=== PATIENT | female | born 1940 | race Caucasian/White ===

== ENCOUNTER 2020-06-03 05:52 | Day surgery (SDC) | payer MEDICARE, BC ==
[2020-06-03] VITALS (8 sets, daily range): BP systolic 116–153; BP diastolic 45–62
[~2020-06-03] VITALS: Ht 154.9 cm; Wt 67.6 kg
[2020-06-03] MEDS ORDERED: vancomycin/NS 1 GM ADD-VANTAGE 250 ML X 1 DOSE IV ONE (06:15)
[2020-06-03] MEDS ORDERED: ceFAZolin 2gm in dextrose, iso 50 ML IV ONE (06:15)
[2020-06-03] MEDS ORDERED: PANT40TA54 PO (06:32)
[2020-06-03] MEDS ORDERED: FURO20TA4 PO (06:32)
[2020-06-03] MEDS ORDERED: FLUO40CA PO (06:32)
[2020-06-03] MEDS ORDERED: AMIT25TA9 PO (06:32)
[2020-06-03] MEDS ORDERED: ATOR-2 PO (06:32)
[2020-06-03] MEDS ORDERED: LEVO150T8 PO (06:32)
[2020-06-03] MEDS ORDERED: CYCL-1 PO (06:32)
[2020-06-03] MEDS ORDERED: METO50TA7 PO (06:53)
[2020-06-03] MEDS ORDERED: MULT-1085 PO (06:53)
[2020-06-03] MEDS ORDERED: NITR0.4T48 SL (06:53)
[2020-06-03] MEDS ORDERED: MAGNESIUM PO (06:53)
[2020-06-03] MEDS ORDERED: ASCO500C17 PO (06:53)
[2020-06-03] MEDS ORDERED: DOCU-148 PO (06:53)
[2020-06-03] MEDS ORDERED: CHOL20004 PO (06:53)
[2020-06-03] MEDS ORDERED: tums (06:53)
[2020-06-03] MEDS ORDERED: MELA5TAB12 PO (06:53)
[2020-06-03] MEDS ORDERED: METO-395 PO (06:53)
[2020-06-03 07:15] LABS: BASOPHILS # (AUTO) 0.1 X10'3 (0-0.2); BASOPHILS % (AUTO) 0.9 % (0-1); EOSINOPHILS # (AUTO) 0.3 X10'3 (0-0.9); EOSINOPHILS % (AUTO) 5.2 % (0-6); HEMATOCRIT 37.6 % (35.0-45.0); HEMOGLOBIN 12.7 g/dl (12.0-16.0); LYMPHOCYTES # (AUTO) 0.7 X10'3 (1.1-4.8); LYMPHOCYTES % (AUTO) 11.5 % (21-51); MEAN CORPUSCULAR HGB CONC 33.8 g/dL (33.0-36.5); MEAN CORPUSCULAR VOLUME 97.6 FL (78-98); MONOCYTES # (AUTO) 0.4 X10'3 (0-0.9); MONOCYTES % (AUTO) 7.1 % (2-12); NEUTROPHILS # (AUTO) 4.6 X10'3 (1.8-7.7); NEUTROPHILS % (AUTO) 75.3 % (42-75); PLATELET COUNT 213 X10'3 (140-440); RED BLOOD COUNT 3.85 X10'6 (4.20-5.60); RED CELL DISTRIBUTION WIDTH 15.2 % (11.5-14.5); WHITE BLOOD COUNT 6.1 X10'3 (4.5-11.0)
[2020-06-03 07:24] LABS: ALBUMIN 4.1 G/DL (3.4-5.0); ANION GAP 11 (8-16); BLOOD UREA NITROGEN 28 MG/DL (7-18); BUN/CREATININE RATIO 15.6 (6.6-38.0); CALCIUM 9.2 MG/DL (8.5-10.1); CHLORIDE 105 MMOL/L (99-107); GLUCOSE 94 MG/DL (70-104); MAGNESIUM 1.9 MG/DL (1.5-2.4); POTASSIUM 4.2 MMOL/L (3.5-5.1); SODIUM 140 MMOL/L (135-145); TOTAL CARBON DIOXIDE 24.1 MMOL/L (24-32); eGFR 27 ML/MIN
[2020-06-03] MEDS ORDERED: pneumococcal 23-VAL P-sac vacc 25 mcg/0.5ml vial IMVAC ONE (07:30)
[2020-06-03] MEDS ORDERED: FLU VACC QS2020-21(6MOS UP)/PF 60 MCG/0.5 ML SYRINGE IMVAC ONE (07:30)
[2020-06-03] MEDS ORDERED: proCHLORperazine 10 MG/2 ml inj ONE (07:33)
[2020-06-03] MEDS ORDERED: fentaNYL/PF 50MCG/1 ML 2ML syringe ONE (07:34)
[2020-06-03] MEDS ORDERED: midazolam 2 mg/2 ml injection ONE ×2 (07:34→09:14)
[2020-06-03] MEDS ORDERED: LIDOcaine 1% W/epiNEPHrine 1:100,000 20ml vial ONE (07:34)
[2020-06-03] MEDS ORDERED: vancomycin 1,000mg inj ONE (07:35)
--- NOTE | 2020-06-03 12:54 | NUR ---
Pt ate 100% of breakfast tray.
== END 2020-06-03 12:55 | disposition home or self-care (01) ==
LOC: SSTAY O 05:52
PROVIDERS: ATTEND Internal Medicine Cardiovascular Disease
DX: Z45.010 Encounter for checking and testing of cardiac pacemaker pulse generator [battery] (principal); J44.9 Chronic obstructive pulmonary disease, unspecified; N18.9 Chronic kidney disease, unspecified; Z85.3 Personal history of malignant neoplasm of breast; Z85.118 Personal history of other malignant neoplasm of bronchus and lung; Z87.891 Personal history of nicotine dependence; Z79.899 Other long term (current) drug therapy
CPT/HCPCS: 33228; 36415; 80048; 83735; 85025; 85610; 93005; 99152; 99153; C1785; J0780; J2250; J3010; J3370; A4620

== ENCOUNTER 2020-12-09 07:54 | Day surgery (SDC) | payer MEDICARE, BC ==
[~2020-12-09] VITALS: Ht 154.9 cm; Wt 62.4 kg
[2020-12-09] VITALS (7 sets, daily range): BP systolic 95–135; BP diastolic 38–66
[~2020-12-09 07:54] MED LIST: AMIT25TA9 PO; ASCO500C17 PO; ATOR-2 PO; CHOL20004 PO; CYCL-1 PO; DOCU-148 PO; FLUO40CA PO; FURO20TA4 PO; LEVO150T8 PO; MAGNESIUM PO; MELA5TAB12 PO; METO-395 PO; METO50TA7 PO; MULT-1085 PO; NITR0.4T48 SL; PANT40TA54 PO; tums
[2020-12-09] MEDS ORDERED: albumin 25% 100mL bottle x 1 IV PRN (08:25)
[2020-12-09] MEDS ORDERED: SENN-29 PO (08:57)
[2020-12-09] MEDS ORDERED: ASPI-1265 PO (08:57)
[2020-12-09] MEDS ORDERED: PRED20TA PO (08:57)
== END 2020-12-09 10:40 | disposition home or self-care (01) ==
LOC: SSTAY O 07:54
PROVIDERS: ATTEND Radiology Vascular & Interventional Radiology
DX: J90 Pleural effusion, not elsewhere classified (principal); I11.0 Hypertensive heart disease with heart failure; I50.9 Heart failure, unspecified; E03.9 Hypothyroidism, unspecified; F32.9 Major depressive disorder, single episode, unspecified; F41.9 Anxiety disorder, unspecified; Z85.3 Personal history of malignant neoplasm of breast; Z85.118 Personal history of other malignant neoplasm of bronchus and lung; Z90.49 Acquired absence of other specified parts of digestive tract; Z90.721 Acquired absence of ovaries, unilateral; Z90.12 Acquired absence of left breast and nipple; Z79.899 Other long term (current) drug therapy; Z79.82 Long term (current) use of aspirin
CPT/HCPCS: 32555

== ENCOUNTER 2020-12-23 08:08 | Day surgery (SDC) | payer MEDICARE, BC ==
[~2020-12-23] VITALS: Ht 154.9 cm; Wt 61.8 kg
[~2020-12-23 08:08] MED LIST changes: +ASPI-1265 PO; -METO-395 PO; +PRED20TA PO; +SENN-29 PO
[2020-12-23] MEDS ORDERED: normal saline 1000ml 1,000 ML IV PRN (08:40)
[2020-12-23] MEDS ORDERED: albumin 25% 100mL bottle x 1 IV PRN (08:40)
[2020-12-23 09:09] VITALS: BP 104/53
[2020-12-23 09:11] VITALS: BP 104/49
[2020-12-23 09:15] VITALS: BP 98/68
[2020-12-23 09:18] VITALS: BP 95/46
[2020-12-23 09:30] VITALS: BP 90/42
[2020-12-23 09:45] VITALS: BP 95/51
== END 2020-12-23 10:10 | disposition home or self-care (01) ==
LOC: SSTAY O 08:08
PROVIDERS: ATTEND Radiology Diagnostic Radiology
DX: J90 Pleural effusion, not elsewhere classified (principal); E78.5 Hyperlipidemia, unspecified; E03.9 Hypothyroidism, unspecified; F32.9 Major depressive disorder, single episode, unspecified; F41.9 Anxiety disorder, unspecified; M19.90 Unspecified osteoarthritis, unspecified site; I11.0 Hypertensive heart disease with heart failure; I50.9 Heart failure, unspecified; Z85.3 Personal history of malignant neoplasm of breast; Z85.118 Personal history of other malignant neoplasm of bronchus and lung; Z90.49 Acquired absence of other specified parts of digestive tract; Z90.721 Acquired absence of ovaries, unilateral; Z90.12 Acquired absence of left breast and nipple
CPT/HCPCS: 32555

== ENCOUNTER 2021-01-06 07:53 | Day surgery (SDC) | payer MEDICARE, BC ==
[~2021-01-06] VITALS: Ht 154.9 cm; Wt 61.6 kg
[~2021-01-06 07:53] MED LIST changes: -MAGNESIUM PO; -MULT-1085 PO; -NITR0.4T48 SL; -PRED20TA PO
[2021-01-06 08:30] VITALS: BP 98/58
[2021-01-06] MEDS ORDERED: albumin 25% 100mL bottle x 1 IV PRN (08:40)
[2021-01-06] MEDS ORDERED: MULT-1074 PO (08:42)
[2021-01-06] MEDS ORDERED: MAGN200T8 PO (08:42)
[2021-01-06 09:44] VITALS: BP 106/57
[2021-01-06 09:52] VITALS: BP 97/44
[2021-01-06 10:00] VITALS: BP 88/44
[2021-01-06 10:11] VITALS: BP 94/43
[2021-01-06 10:15] VITALS: BP 96/44
== END 2021-01-06 10:45 | disposition home or self-care (01) ==
LOC: SSTAY O 07:53
PROVIDERS: ATTEND Radiology Diagnostic Radiology
DX: J90 Pleural effusion, not elsewhere classified (principal); E78.5 Hyperlipidemia, unspecified; E03.9 Hypothyroidism, unspecified; F32.9 Major depressive disorder, single episode, unspecified; F41.9 Anxiety disorder, unspecified; M19.90 Unspecified osteoarthritis, unspecified site; I11.0 Hypertensive heart disease with heart failure; I50.9 Heart failure, unspecified; Z85.3 Personal history of malignant neoplasm of breast; Z85.118 Personal history of other malignant neoplasm of bronchus and lung; Z90.12 Acquired absence of left breast and nipple; Z90.49 Acquired absence of other specified parts of digestive tract; Z90.721 Acquired absence of ovaries, unilateral; Z79.899 Other long term (current) drug therapy
CPT/HCPCS: 32555

== ENCOUNTER 2021-01-20 06:10 | Emergency (ER) | payer MEDICARE, BC ==
[~2021-01-20] VITALS: Ht 154.9 cm; Wt 60.5 kg
[~2021-01-20 06:10] MED LIST changes: +MAGN200T8 PO; +MULT-1074 PO
[2021-01-20 10:44] VITALS: BP 129/62
== END 2021-01-20 13:51 | disposition home or self-care (01) ==
LOC: ER 06:11
DX: J90 Pleural effusion, not elsewhere classified (principal); M19.90 Unspecified osteoarthritis, unspecified site; Z90.710 Acquired absence of both cervix and uterus; Z95.0 Presence of cardiac pacemaker; Z98.890 Other specified postprocedural states; Z79.82 Long term (current) use of aspirin; Z79.899 Other long term (current) drug therapy
CPT/HCPCS: 32555; 71045; 71046; 99285

== ENCOUNTER 2021-02-03 09:35 | Day surgery (SDC) | payer MEDICARE, BC ==
[~2021-02-03] VITALS: Ht 154.9 cm; Wt 62.9 kg
[2021-02-03] VITALS (9 sets, daily range): BP systolic 105–133; BP diastolic 54–71
[2021-02-03] MEDS ORDERED: albumin 25% 100mL bottle x 1 IV PRN (10:05)
--- NOTE | 2021-02-03 15:10 | NUR ---
1100-Pt states she feels increased cramping and a wheezy feeling-Danyelle notified-CXR ordered
--- NOTE | 2021-02-03 15:18 | NUR ---
1150-Pt states the pain has somewhat decreased
== END 2021-02-03 12:15 | disposition home or self-care (01) ==
LOC: SSTAY O 09:35
PROVIDERS: ATTEND Preventive Medicine Aerospace Medicine
DX: J90 Pleural effusion, not elsewhere classified (principal); E78.5 Hyperlipidemia, unspecified; E03.9 Hypothyroidism, unspecified; F32.9 Major depressive disorder, single episode, unspecified; F41.9 Anxiety disorder, unspecified; M19.90 Unspecified osteoarthritis, unspecified site; I11.0 Hypertensive heart disease with heart failure; I50.9 Heart failure, unspecified; Z85.118 Personal history of other malignant neoplasm of bronchus and lung; Z85.3 Personal history of malignant neoplasm of breast
CPT/HCPCS: 32555; 71045